=== PATIENT | female | born 1945 | race Caucasian/White ===

== ENCOUNTER 2017-01-27 12:16 | Emergency (ER) | payer MEDICARE, MEDICAID ==
[~2017-01-27] VITALS: Ht 162.6 cm; Wt 68.5 kg
[~2017-01-27 12:16] MED LIST: ASPI81TA82 PO; FOLI1TAB PO; LIDO5DIS35 TD; METH2.5 PO; METO50TA PO; PARO20TA PO
[2017-01-27 12:25] VITALS: BP 141/87; PULSE 67; RESP 18; TEMP 98.2; O2SAT 98
[2017-01-27] MEDS ORDERED: UNKNOWN MEDS (12:37)
[2017-01-27] MEDS ORDERED: OXYC1CAP PO (12:37)
[2017-01-27] MEDS ORDERED: ASPI81CH CHEW (12:37)
--- NOTE | 2017-01-27 12:41 | PD ---
HPI Chief Complaint: Oral / Dental Pain or Problem Time Seen by Provider: 12:41 Travel History International Travel<30 days: No Contact w/Intl Traveler<30days: No Traveled to known affect area: No History of Present Illness HPI 71 year old female with PMH of fibromyalgia and rheumatoid arthritis presents to the ED for evaluation of "2 or 3" week history of painful area at the roof of her mouth. She complains of burning pain that radiates into the lips. She also states she feels as if her lips are swollen. She also endorses malaise, headache and occasional dizziness. She endorses chills, has not measured a fever at home. She has never smoked. She denies ear pain, rhinorrhea, sore throat, cough. He is been treating at home with one 200 mg Motrin daily and occasional peroxide swishes. She states she has an appointment with her primary care provider on the . PFSH Past Medical History Arthritis: Yes (RHEUMATOID) Autoimmune Disease: Yes (RA) Blood Disorders: No Anxiety: No Depression: Yes Heart Rhythm Problems: No Cancer: No Cardiac Catheterization: No Cardiovascular Problems: No High Cholesterol: No Chemotherapy: No Chest Pain: No Congestive Heart Failure: No Cirrhosis: No Cerebrovascular Accident: No Diabetes: No Diminished Hearing: No Endocrine: No Fibromyalgia: Yes GERD: Yes Genitourinary: No Hypertension: No Immune Disorder: No Implanted Vascular Access Dvce: Yes Musculoskeletal: Yes ("ruptured disc,back" "2 vertebrae tips broken off in neck") Neurologic: Yes (FIBROMYALGIA) Psychiatric: Yes Reproductive: No Respiratory: No Immunizations Current: Yes Migraines: No Myocardial Infarction: No Radiation Therapy: No Renal Failure: No Seizures: Yes Thyroid Disease: No ?: Not Menopausal: Yes Dilation and Curettage (D&C): Yes Tubal Ligation: Yes Past Surgical History Abdominal Surgery: No AICD: No Arteriovenous Shunt: No Body Medical Devices: BULDING DISC, PT ALSO STATES WIRES IN RIGHT JAW Cardiac Surgery: No Coronary Artery Bypass Graft: No Ear Surgery: No Endocrine Surgery: No Eye Surgery: Yes (BILATERAL CATARACT) Genitourinary Surgery: No Gynecologic Surgery: Yes (HYSTERECTOMY) Hysterectomy: Yes (IN EARLY 30'S) Insulin Pump: No Joint Replacement: No Oral Surgery: No Pacemaker: No Thoracic Surgery: No Tonsillectomy: Yes Other Surgery: Yes (TUMOR REMOVED FROM RIGHT UNDER ARM) Social History Alcohol Use: No Tobacco Use: No Substance Use: No Allergies-Medications (Allergen,Severity, Reaction): Coded Allergies: *MDRO Multi-Drug Resistant Organism (Verified Allergy, Unknown, 01/27/17) MRSA Codeine (Verified Adverse Reaction, Severe, ITCH, 01/27/17) Ultram (Verified Adverse Reaction, Severe, NAUSEA, 01/27/17) Reported Meds & Prescriptions Reported Meds & Active Scripts Active Magic Mouthwash Adult Liq (Multi-Ingredient Mouthwash/Gargle) 120 Ml Susp 5 Ml SWISH-SWAL Q3HR PRN Each 5mL contains: Nystatin 200,000units, Diphenhydramine 4.25mg, Viscous Lidocaine 10mg, An syrup 0.8 mL Reported [Unknown Meds] Aspirin 81 Mg Chew 81 Mg CHEW DAILY Oxycodone (Oxycodone HCl) 5 Mg Cap Unknown Dose PO Q4H PRN Review of Systems Except as stated in HPI: all other systems reviewed are Neg Physical Exam Narrative GENERAL: Well-nourished, well-developed elderly white female in no acute distress. SKIN: Warm and dry. HEAD: Normocephalic. Atraumatic. EYES: No scleral icterus. No injection or drainage. PERRLA. EOMI. ENT: Pearly barker tympanic membranes bilaterally. Nasal mucosa is moist. Oropharynx without erythema, edema or exudate. There is a 1.5 cm tender, rubbery nodule protruding from the hard palate. No erythema or discharge. NECK: Supple, trachea midline. No JVD. Positive bilateral anterior cervical lymphadenopathy. CARDIOVASCULAR: Regular rate and rhythm without murmurs, gallops, or rubs. No carotid bruits. 2+ DP and radial pulses bilaterally. RESPIRATORY: Breath sounds clear and equal bilaterally. No accessory muscle use. GASTROINTESTINAL: Abdomen soft, non-tender, nondistended. + Bowel sounds MUSCULOSKELETAL: No cyanosis, or edema. The patient is ambulatory and moves extremities spontaneously. BACK: Nontender without obvious deformity. No CVA tenderness. Data Data Last Documented VS Vital Signs Date Time Temp Pulse Resp B/P Pulse Ox O2 Delivery O2 Flow Rate FiO2 01/27/17 15:03 75 16 135/86 99 01/27/17 12:[address] Facial Bones W Iv Contrast (3/17/17 ) Basic Metabolic Panel (Bmp) (01/27/17 12:51) ^ Insert Iv (01/27/17 12:54) Complete Blood Count With Diff (01/27/17 12:55) Iohexol 350 Inj (Omnipaque 350 Inj) (01/27/17 13:50) Labs Laboratory Tests Test 01/27/17 13:00 White Blood Count 6.2 TH/MM3 Red Blood Count 4.21 MIL/MM3 Hemoglobin 12.7 GM/DL Hematocrit 38.9 % Mean Corpuscular Volume 92.3 FL Mean Corpuscular Hemoglobin 30.1 PG Mean Corpuscular Hemoglobin 32.6 % Concent Red Cell Distribution Width 14.3 % Platelet Count 203 TH/MM3 Mean Platelet Volume 7.7 FL Neutrophils (%) (Auto) 53.9 % Lymphocytes (%) (Auto) 37.7 % Monocytes (%) (Auto) 6.2 % Eosinophils (%) (Auto) 1.5 % Basophils (%) (Auto) 0.7 % Neutrophils # (Auto) 3.3 TH/MM3 Lymphocytes # (Auto) 2.4 TH/MM3 Monocytes # (Auto) 0.4 TH/MM3 Eosinophils # (Auto) 0.1 TH/MM3 Basophils # (Auto) 0.0 TH/MM3 CBC Comment AUTO DIFF Differential Comment AUTO DIFF CONFIRMED Sodium Level 144 MEQ/L Potassium Level 4.2 MEQ/L Chloride Level 107 MEQ/L Carbon Dioxide Level 30.5 MEQ/L Anion Gap 7 MEQ/L Blood Urea Nitrogen 13 MG/DL Creatinine 0.83 MG/DL Estimat Glomerular Filtration 67 ML/MIN Rate Random Glucose 85 MG/DL Calcium Level 9.0 MG/DL [facility] Medical Decision Making Medical Screen Exam Complete: Yes Emergency Medical Condition: Yes Differential Diagnosis oral cancer versus abscess versus deep neck space infection versus other Narrative Course 71 year old female with PMH of fibromyalgia and rheumatoid arthritis presents to the ED for evaluation of "2 or 3" week history of painful area at the roof of her mouth. She complains of burning pain that radiates into the lips, malaise, headache, chills and occasional dizziness. She has never smoked. She denies ear pain, rhinorrhea, sore throat, cough. She has an appointment with her primary care provider on the . Vitrals reviewed. Physical exam reveals a nontoxic-appearing elderly female in no acute distress. Completely edentulous. There is a 1 cm rubbery, tender nodule of the hard palate and bilateral anterior cervical lymphadenopathy. Physical exam is otherwise unremarkable. Basic labs are unremarkable. CT of the face with contrast reveals very minimal tonsillar asymmetry but is otherwise unremarkable. The radiologist does note limitations of the study. The patient was prescribed Magic mouthwash when necessary pain, instructed to follow-up with the on-call ENT provider Dr. Prince. I did discuss my concern for cancer and stressed the importance of follow-up. She indicated understanding of instructions and is amenable to plan of care. Patient is stable and discharged home. Diagnosis Primary Impression: Palatal mass Referrals: Fletcher Prince MD Patient Instructions: General Instructions Additional Instructions: Rest, hydrate. Nausea mouthwash 4-5 times a day as needed for pain. Follow-up with the wildlife biostation research ecologist as discussed. Return to the ED for any urgent or emergent medical condition. Med/Other Pt SpecificInfo: Prescription(s) given Scripts Odqmuazm-Zsgqlzuejxdmugv-Ptqdxfbwr Liq (Magic Mouthwash Adult Liq)120 Ml Susp5 Ml SWISH-SWAL Q3HR PRN (Mouth sores) #120 ML Ref 0 Each 5mL contains: Nystatin 200,000units, Diphenhydramine 4.25mg, Viscous Lidocaine 10mg, An syrup 0.8 mL Prov:Kalyan Haque MD 01/27/17 Disposition: 01 DISCHARGE HOME Condition: Stable Alem Pascual Jan 27, 2017 12:41
[2017-01-27 13:09] LABS: AUTOMATED NEUTROPHIL # 3.3 TH/MM3 (1.8-7.7); BASOPHIL % 0.7 % (0.0-2.0); EOSINOPHIL # 0.1 TH/MM3 (0-0.4); EOSINOPHIL % 1.5 % (0.0-4.0); HEMATOCRIT 38.9 % (35.0-46.0); LYMPH % 37.7 % (9.0-44.0); LYMPHOCYTE # 2.4 TH/MM3 (1.0-4.8); MEAN CELL VOLUME 92.3 FL (80.0-100.0); MEAN CORPUSCULAR HEMOGLOBIN 30.1 PG (27.0-34.0); MEAN CORPUSCULAR HGB CONC 32.6 % (32.0-36.0); MONO % 6.2 % (0.0-8.0); NEUT % 53.9 % (16.0-70.0); PLATELET COUNT 203 TH/MM3 (150-450); RED BLOOD COUNT 4.21 MIL/MM3 (4.00-5.30); RED CELL DISTRIBUTION WIDTH 14.3 % (11.6-17.2); WHITE BLOOD COUNT 6.2 TH/MM3 (4.0-11.0)
[2017-01-27 13:23] LABS: POTASSIUM 4.2 MEQ/L (3.5-5.1)
[2017-01-27 13:24] LABS: HEMO FLAGS AUTO DIFF
[2017-01-27 13:26] LABS: BICARBONATE 30.5 MEQ/L (21.0-32.0)
[2017-01-27] MEDS ORDERED: IOHEXOL 350 MG/ML 10 ML VIAL (for RAD DIAG) IV ONE (13:50)
[2017-01-27 13:52] LABS: SCAN/DIFF AUTO DIFF CONFIRMED
--- NOTE | 2017-01-27 14:42 | RADHPO ---
EXAM DATE/TIME: 01/27/2017 13:39 [facility] COMPARISON: No previous studies available for comparison. INDICATIONS : Roof of mouth pain. Evaluate for tumor. Cephalgia. Malaise. Dizziness. IV CONTRAST: 65 cc Omnipaque 350 (iohexol) IV RADIATION DOSE: 29.78 CTDIvol (mGy) MEDICAL HISTORY : Seizures. Gastroesophageal reflux disease. Palatal nodule. SURGICAL HISTORY : Tubal ligation. Hysterectomy. ENCOUNTER: Initial ACUITY: 2 weeks PAIN SCALE: 5/10 LOCATION: Facial TECHNIQUE: Volumetric scanning of the facial bones was performed. Using automated exposure contr ol and adjustment of the mA and/or kV according to patient size, radiation dose was kept as low as re asonably achievable to obtain optimal diagnostic quality images. FINDINGS: There is good visualization of the skull base and floor of the mouth in the axial and c oronal projections. There is no adenopathy. There is no soft tissue mass. On the coronal reconstructions there is no abnormal soft tissue evident. There is minimal mucoperiosteal thickening in the sphenoid sinus. Maxillary sinuses are clear. The patient is edentulate in the maxilla area. CONCLUSION: 1. I do not see an etiology for the patient's pain. 2. Palate lesions are notoriously difficult to image. Direct visualization is suggested. MRI can also be used for further evaluation. There is very minimal asymmetry on the left tonsil when compared to the right which is very nonspecific. Kannan Lopes MD FACR on January 27, 2017 at 14:06 Board Certified Radiologist. This report was verified electronically.
[2017-01-27] MEDS ORDERED: MAGICADU2 SWISH-SWAL (14:49)
[2017-01-27 15:03] VITALS: BP 135/86
== END 2017-01-27 15:03 | disposition home or self-care (01) ==
LOC: PHEFT 12:16
DX: R22.0 Localized swelling, mass and lump, head (principal); R59.0 Localized enlarged lymph nodes
CPT/HCPCS: 70487; 80048; 85025; 99283; Q9967

== ENCOUNTER 2017-02-23 20:46 | Emergency (ER) | payer MEDICARE, MEDICAID ==
[~2017-02-23] VITALS: Ht 162.6 cm; Wt 66.5 kg
[~2017-02-23 20:46] MED LIST changes: +ASPI81CH CHEW; -ASPI81TA82 PO; -FOLI1TAB PO; -LIDO5DIS35 TD; +MAGICADU2 SWISH-SWAL; -METH2.5 PO; -METO50TA PO; +OXYC1CAP PO; -PARO20TA PO; +UNKNOWN MEDS
[2017-02-23 20:52] VITALS: BP 136/78; PULSE 90; RESP 16; TEMP 98.5; O2SAT 97
[2017-02-23 21:05] VITALS: BP 136/83; PULSE 83; RESP 18; O2SAT 97
[2017-02-23] MEDS ORDERED: SODIUM CHLORID 0.9% 500 ML INJ 500 ML IV ONE (21:45)
[2017-02-23 22:04] LABS: AUTOMATED NEUTROPHIL # 3.5 TH/MM3 (1.8-7.7); BASOPHIL # 0.1 TH/MM3 (0-0.2); BASOPHIL % 0.8 % (0.0-2.0); EOSINOPHIL # 0.1 TH/MM3 (0-0.4); EOSINOPHIL % 2.1 % (0.0-4.0); HEMO FLAGS DIFF FINAL; LYMPH % 37.2 % (9.0-44.0); LYMPHOCYTE # 2.4 TH/MM3 (1.0-4.8); MEAN CELL VOLUME 90.7 FL (80.0-100.0); MEAN CORPUSCULAR HEMOGLOBIN 29.6 PG (27.0-34.0); MEAN CORPUSCULAR HGB CONC 32.6 % (32.0-36.0); MONO % 6.6 % (0.0-8.0); NEUT % 53.3 % (16.0-70.0); PLATELET COUNT 204 TH/MM3 (150-450); RED BLOOD COUNT 3.97 MIL/MM3 (4.00-5.30); RED CELL DISTRIBUTION WIDTH 13.2 % (11.6-17.2); WHITE BLOOD COUNT 6.5 TH/MM3 (4.0-11.0)
[2017-02-23 22:08] LABS: CHLORIDE 109 MEQ/L (98-107); POTASSIUM 3.5 MEQ/L (3.5-5.1); SODIUM (NA) 146 MEQ/L (136-145)
[2017-02-23 22:12] LABS: ANION GAP 9 MEQ/L (5-15); BICARBONATE 28.4 MEQ/L (21.0-32.0); BLOOD UREA NITROGEN 14 MG/DL (7-18)
[2017-02-23 22:15] LABS: ALT (GPT) 12 U/L (10-53); AST (GOT) 34 U/L (15-37); GLOMERULAR FILTRATION RATE 57 ML/MIN (>89)
--- NOTE | 2017-02-23 22:15 | RADHPO ---
EXAM DATE/TIME: 02/23/2017 21:56 [facility] COMPARISON: CHEST PA & LAT, November 07, 2014, 17:00. INDICATIONS : Chest discomfort; fall 2 days ago. MEDICAL HISTORY : Rheumatoid arthritis. Seizures. Fibromyalgia. Osteoporosis. SURGICAL HISTORY : ENCOUNTER: Initial ACUITY: 2 days PAIN SCORE: 1/10 LOCATION: Bilateral chest FINDINGS: PA and lateral views of the chest demonstrate the lungs to be symmetrically aerated without evidence of mass, infiltrate or effusion. The cardiomediastinal contours are unremarkable. Osseous structure s are intact. CONCLUSION: No acute disease. Fletcher Dutta MD on February 23, 2017 at 22:11 Board Certified Radiologist. This report was verified electronically.
--- NOTE | 2017-02-23 22:15 | RADHPO ---
EXAM DATE/TIME: 02/23/2017 22:00 [facility] COMPARISON: No previous studies available for comparison. INDICATIONS : Right shoulder pain; fall 2 days ago. MEDICAL HISTORY : Rheumatoid arthritis. Osteoporosis. Fibromyalgia. SURGICAL HISTORY : None. ENCOUNTER: Initial ACUITY: 2 days PAIN SCORE: 6/10 LOCATION: Right shoulder. FINDINGS: Multiple view examination of the right shoulder demonstrates no evidence of fracture or dislocation. The glenohumeral and acromioclavicular joints are maintained. There is normal range of motion betwe en internal and external rotation. Bony mineralization is normal. CONCLUSION: Negative trauma study. Fletcher Dutta MD on February 23, 2017 at 22:13 Board Certified Radiologist. This report was verified electronically.
[2017-02-23 22:16] LABS: TOTAL BILIRUBIN ADULT 0.4 MG/DL (0.2-1.0)
[2017-02-23 22:16] LABS: BLOOD, URINE NEG (NEG); GLUCOSE,URINE NEG (NEG); KETONE, URINE TRACE mg/dL (NEG); NITRITE,URINE NEG (NEG); PH, URINE 5.5 (5.0-8.5)
[2017-02-23 22:18] LABS: ALKALINE PHOSPHATASE 87 U/L (45-117)
[2017-02-23 22:23] LABS: URINE COLOR YELLOW (YELLW/STRAW)
[2017-02-23 22:25] LABS: COMMENT (UR) CULT NOT INDICATED; CULTURE IF INDICATED CULT NOT INDICATED; MUCUS URINE MANY /lpf (OCC); SQUAMOUS EPITHELIAL CELL URINE 0-5 /hpf (0-5); WBC, URINE 0-2 /hpf (0-5)
[2017-02-23] MEDS ORDERED: PERC5TAB12 PO (22:29)
[2017-02-23] MEDS ORDERED: METH2.5T PO (22:29)
--- NOTE | 2017-02-23 22:56 | PD ---
HPI Chief Complaint: General Weakness Time Seen by Provider: 21:40 Travel History International Travel<30 days: No Contact w/Intl Traveler<30days: No Traveled to known affect area: No History of Present Illness HPI Patient is a 71-year-old female who comes in complaining of vaginal pain and itching. She says her daughter gave her some Monistat which only made the symptoms worse, she had severe burning after using it. She says she has burning with urination. She denies any abdominal pain. She also reports that a day or 2 ago she fell when she tripped over some bricks around her house. She says she landed on her right side including the right side of her head and her right shoulder. She is complaining of pain to her head, her shoulder and her entire right side. She denies any loss of consciousness. She denies dizziness, nausea or vomiting. She denies fever or chills. PFSH Past Medical History Arthritis: Yes (RHEUMATOID) Autoimmune Disease: Yes (RA) Blood Disorders: No Anxiety: No Depression: Yes Heart Rhythm Problems: No Cancer: No Cardiac Catheterization: No Cardiovascular Problems: No High Cholesterol: No Chemotherapy: No Chest Pain: No Congestive Heart Failure: No Cirrhosis: No Cerebrovascular Accident: No Diabetes: No Diminished Hearing: No Endocrine: No Fibromyalgia: Yes GERD: Yes Genitourinary: No Hypertension: No Immune Disorder: No Implanted Vascular Access Dvce: Yes Medical other: Yes (Left shoulder rotator cuff tear) Musculoskeletal: Yes ("ruptured disc,back" "2 vertebrae tips broken off in neck") Neurologic: Yes (FIBROMYALGIA) Psychiatric: Yes Reproductive: No Respiratory: No Immunizations Current: Yes Migraines: No Myocardial Infarction: No Radiation Therapy: No Renal Failure: No Seizures: Yes Thyroid Disease: No Tetanus Vaccination: Never Vaccinated ?: Not Menopausal: Yes Dilation and Curettage (D&C): Yes Tubal Ligation: Yes Past Surgical History Abdominal Surgery: No AICD: No Arteriovenous Shunt: No Body Medical Devices: BULDING DISC, PT ALSO STATES WIRES IN RIGHT JAW Cardiac Surgery: No Coronary Artery Bypass Graft: No Ear Surgery: No Endocrine Surgery: No Eye Surgery: Yes (BILATERAL CATARACT) Genitourinary Surgery: No Gynecologic Surgery: Yes (HYSTERECTOMY) Hysterectomy: Yes (IN EARLY 'S) Insulin Pump: No Joint Replacement: No Oral Surgery: No Pacemaker: No Thoracic Surgery: No Tonsillectomy: Yes Other Surgery: Yes (TUMOR REMOVED FROM RIGHT UNDER ARM) Social History Alcohol Use: No Tobacco Use: No Substance Use: No Allergies-Medications (Allergen,Severity, Reaction): Coded Allergies: *MDRO Multi-Drug Resistant Organism (Verified Allergy, Unknown, 02/23/17) MRSA Codeine (Verified Adverse Reaction, Severe, ITCH, 02/23/17) Ultram (Verified Adverse Reaction, Severe, NAUSEA, 02/23/17) Reported Meds & Prescriptions Reported Meds & Active Scripts Active Reported Percocet (Oxycodone-Acetaminophen) 5-325 mg Tab 1 Tab PO Q6H PRN Methotrexate 2.5 Mg Tab 2.5 Mg PO Q7D [Unknown Meds] Aspirin 81 Mg Chew 81 Mg CHEW DAILY Review of Systems Except as stated in HPI: all other systems reviewed are Neg General / Constitutional: No: Fever, Chills Eyes: No: Blurred Vision HENT: No: Headaches, Lightheadedness Cardiovascular: No: Chest Pain or Discomfort Respiratory: No: Shortness of Breath Gastrointestinal: No: Nausea, Vomiting Genitourinary: Positive: Dysuria Skin: No Rash Neurologic: No: Weakness, Dizziness Physical Exam Narrative GENERAL: Awake and alert, in no acute distress. SKIN: Focused skin assessment warm/dry. HEAD: Atraumatic. Normocephalic. EYES: Pupils equal and round. No scleral icterus. Extraocular movements intact. ENT: Mucous membranes pink and moist. NECK: Trachea midline. No JVD. No cervical spine tenderness. Tender to palpation of the right trapezius muscle. CARDIOVASCULAR: Regular rate and rhythm. No murmur appreciated. No chest wall tenderness. RESPIRATORY: No accessory muscle use. Clear to auscultation. Breath sounds equal bilaterally. GASTROINTESTINAL: Abdomen soft, nondistended. Tender to palpation along the right side of the abdomen. : abnormal lesion at the 6 oclock area of the introitus. White discharge. MUSCULOSKELETAL: No obvious deformities. No clubbing. No cyanosis. No edema. Tender to palpation of the right shoulder. NEUROLOGICAL: Awake and alert. No obvious cranial nerve deficits. Motor grossly within normal limits. Normal speech. PSYCHIATRIC: Appropriate mood and affect; insight and judgment normal. Data Data Last Documented VS Vital Signs Date Time Temp Pulse Resp B/P Pulse Ox O2 Delivery O2 Flow Rate FiO2 02/23/17 22:05 20 4/13/17 21:05 83 136/83 97 Room Air 02/23/17 20:52 98.5 Orders Complete Blood Count With Diff (02/23/17 21:40) Comprehensive Metabolic Panel (02/23/17 21:40) Urinalysis - C+S If Indicated (02/23/17 21:40) Cath For Specimen (02/23/17 21:40) Ct Brain W/O Iv Contrast(Rout) (02/23/17 ) Chest, Pa & Lat (02/23/17 ) Shoulder, Complete (>2vws) (02/23/17 ) Troponin I (02/23/17 21:40) Electrocardiogram (02/23/17 ) Ct Abd/Pel W Iv Contrast(Rout) (02/23/17 ) Sodium Chlorid 0.9% 500 Ml Inj (Ns 500 M (02/23/17 21:45) Iohexol 350 Inj (Omnipaque 350 Inj) (02/23/17 23:01) Acetaminophen (Tylenol) (02/23/17 23:15) Labs Laboratory Tests Test 02/23/17 02/23/17 21:40 21:50 Urine Color YELLOW Urine Turbidity CLEAR Urine pH 5.5 Urine Specific Farber 1.034 Urine Protein TRACE mg/dL Urine Glucose (UA) NEG mg/dL Urine Ketones TRACE mg/dL Urine Occult Blood NEG Urine Nitrite NEG Urine Bilirubin NEG Urine Leukocyte Esterase NEG Urine WBC 0-2 /hpf Urine Squamous Epithelial 0-5 /hpf Cells Urine Mucus MANY /lpf Microscopic Urinalysis Comment CULT NOT INDICATED White Blood Count 6.5 TH/MM3 Red Blood Count 3.97 MIL/MM3 Hemoglobin 11.7 GM/DL Hematocrit 36.0 % Mean Corpuscular Volume 90.7 FL Mean Corpuscular Hemoglobin 29.6 PG Mean Corpuscular Hemoglobin 32.6 % Concent Red Cell Distribution Width 13.2 % Platelet Count 204 TH/MM3 Mean Platelet Volume 8.0 FL Neutrophils (%) (Auto) 53.3 % Lymphocytes (%) (Auto) 37.2 % Monocytes (%) (Auto) 6.6 % Eosinophils (%) (Auto) 2.1 % Basophils (%) (Auto) 0.8 % Neutrophils # (Auto) 3.5 TH/MM3 Lymphocytes # (Auto) 2.4 TH/MM3 Monocytes # (Auto) 0.4 TH/MM3 Eosinophils # (Auto) 0.1 TH/MM3 Basophils # (Auto) 0.1 TH/MM3 CBC Comment DIFF FINAL Differential Comment Sodium Level 146 MEQ/L Potassium Level 3.5 MEQ/L Chloride Level 109 MEQ/L Carbon Dioxide Level 28.4 MEQ/L Anion Gap 9 MEQ/L Blood Urea Nitrogen 14 MG/DL Creatinine 0.96 MG/DL Estimat Glomerular Filtration 57 ML/MIN Rate Random Glucose 109 MG/DL Calcium Level 8.6 MG/DL Total Bilirubin 0.4 MG/DL Aspartate Amino Transf 34 U/L (AST/SGOT) Alanine Aminotransferase 12 U/L (ALT/SGPT) Alkaline Phosphatase 87 U/L Troponin I LESS THAN 0.02 NG/ML Total Protein 6.8 GM/DL Albumin 3.4 GM/DL [facility] Medical Decision Making Medical Screen Exam Complete: Yes Emergency Medical Condition: Yes Medical Record Reviewed: Yes Interpretation(s) ECG shows normal sinus rhythm at 65, no ST elevation or depression, normal intervals. Differential Diagnosis UTI versus yeast infection versus humeral fracture versus ICH versus abdominal injury Narrative Course Patient is a 71-year-old female comes in complaining of vaginal pain and burning. Exam shows some abnormal vaginal cells and white discharge. IV established, labs sent. Labs show no acute abnormalities. Urinalysis is negative for UTI. X-ray of the chest and shoulder show no acute abnormalities. CT head and abdomen and pelvis show no acute abnormalities. informed she needs to see a interior design assistant to have the abnormal cells looked at. She understands this and will make an appointment. Patient says she is comfortable going home, she says she feels safe at home. Advised that she should walk with her walker or cane to avoid falling in the future. Advised to return to the ED as needed for any worsening symptoms. Advised follow-up with a primary care doctor. Given a prescription for Diflucan to help with possible symptoms of yeast. Diagnosis Primary Impression: Vaginal burning Patient Instructions: General Instructions, Vaginitis (ED) Additional Instructions: Your vaginal exam was abnormal, you need to follow up with a interior design assistant. You should follow up with your primary doctor. Return to the ED as needed for any worsening symptoms. Scripts Fluconazole (Diflucan)150 Mg [id number] Mg PO ONCE #1 TAB Ref 0 Prov:Liv Montanez MD 02/23/17 Disposition: 01 DISCHARGE HOME Condition: Stable Liv Montanez MD Feb 23, 2017 22:56
[2017-02-23] MEDS ORDERED: IOHEXOL 350 MG/ML 10 ML VIAL (for RAD DIAG) IV ONE (23:01)
--- NOTE | 2017-02-23 23:08 | RADHPO ---
EXAM DATE/TIME: 02/23/2017 22:35 [facility] COMPARISON: CT BRAIN W/O CONTRAST, October 18, 2015, 20:12. INDICATIONS : Trauma. Fall. RADIATION DOSE: 62.82 CTDIvol (mGy) MEDICAL HISTORY : Seizures. SURGICAL HISTORY : Hysterectomy. ENCOUNTER: Initial ACUITY: 2 days PAIN SCALE: 0/10 LOCATION: Right frontal TECHNIQUE: Multiple contiguous axial images were obtained of the head. Using automated exposure control and adj ustment of the mA and/or kV according to patient size, radiation dose was kept as low as reasonably a chievable to obtain optimal diagnostic quality images. FINDINGS: CEREBRUM: The ventricles are normal for age. No evidence of midline shift, mass lesion, hemorrhage or acute in farction. No extra-axial fluid collections are seen. POSTERIOR FOSSA: The cerebellum and brainstem are intact. The 4th ventricle is midline. The cerebellopontine angle i s unremarkable. EXTRACRANIAL: The visualized portion of the orbits is intact. SKULL: The calvaria is intact. No evidence of skull fracture. CONCLUSION: Normal examination for a patient of this age. No significant change Golden Bailon MD on February 23, 2017 at 23:06 Board Certified Radiologist. This report was verified electronically.
--- NOTE | 2017-02-23 23:10 | RADHPO ---
EXAM DATE/TIME: 02/23/2017 22:39 [facility] COMPARISON: No previous studies available for comparison. INDICATIONS : Pelvic discomfort. IV CONTRAST: 100 cc Omnipaque 350 (iohexol) IV ORAL CONTRAST: No oral contrast ingested. RADIATION DOSE: 8.79 CTDIvol (mGy) MEDICAL HISTORY : Gastroesophageal reflux disease. Seizures. SURGICAL HISTORY : Hysterectomy. ENCOUNTER: Initial ACUITY: 2 days PAIN SCALE: 0/10 LOCATION: Bilateral lower quadrant TECHNIQUE: Volumetric scanning of the abdomen and pelvis was performed. Using automated exposure control and ad justment of the mA and/or kV according to patient size, radiation dose was kept as low as reasonably achievable to obtain optimal diagnostic quality images. FINDINGS: LOWER LUNGS: The visualized lower lungs are clear. LIVER: Homogeneous density without lesion. There is no dilation of the biliary tree. No calcified gallston es. SPLEEN: Normal size without lesion. PANCREAS: Within normal limits. KIDNEYS: Normal in size and shape. There is no mass, stone or hydronephrosis. ADRENAL GLANDS: Within normal limits. VASCULAR: There is no aortic aneurysm. BOWEL/MESENTERY: The stomach, small bowel, and colon demonstrate no acute abnormality. There is no free intraperitone al air or fluid. No inflammatory changes. There is stool throughout colon. ABDOMINAL WALL: Within normal limits. RETROPERITONEUM: There is no lymphadenopathy. BLADDER: No wall thickening or mass. REPRODUCTIVE: Within normal limits. INGUINAL: There is no lymphadenopathy or hernia. MUSCULOSKELETAL: Within normal limits for patient age. Primary bony degenerative changes. CONCLUSION: Unremarkable CT abdomen and pelvis for patient's age. Golden Bailon MD on February 23, 2017 at 23:07 Board Certified Radiologist. This report was verified electronically.
[2017-02-23] MEDS ORDERED: ACETAMINOPHEN 325 MG TAB PO ONE (23:15)
[2017-02-23] MEDS ORDERED: DIFL150T PO (23:30)
[2017-02-23 23:40] VITALS: BP 125/60; TEMP 97.9
[2017-02-23 23:55] VITALS: RESP 16
--- NOTE | 2017-02-24 10:29 | EKG ---
Date Performed: 02/23/2017 Time Performed: 22:19:20 PTAGE: 71 years EKG: Sinus rhythm Normal ECG PREVIOUS TRACING : 12/18/2015 06.06 DOCTOR: Cesar Rudd Interpretating Date/Time 02/24/2017 10:28:25
== END 2017-02-23 23:50 | disposition home or self-care (01) ==
LOC: PHED 20:46
DX: M06.9 Rheumatoid arthritis, unspecified (principal); M79.7 Fibromyalgia; N76.0 Acute vaginitis
CPT/HCPCS: 70450; 71020; 73030; 74177; 80053; 81001; 84484; 85025; 93005; 96360; 99284; J7040; P9612; Q9967

== ENCOUNTER 2017-08-22 16:15 | Emergency (ER) | payer MEDICARE, MEDICAID ==
[~2017-08-22] VITALS: Ht 162.6 cm; Wt 50.0 kg
[~2017-08-22 16:15] MED LIST changes: +DIFL150T PO; -MAGICADU2 SWISH-SWAL; +METH2.5T PO; -OXYC1CAP PO; +PERC5TAB12 PO
[2017-08-22 16:30] VITALS: BP 94/60; PULSE 65; RESP 18; TEMP 98.5; O2SAT 98
[2017-08-22] MEDS ORDERED: SODIUM CHLOR 0.9% 1000 ML INJ 1,000 ML IV ONE (16:30)
--- NOTE | 2017-08-22 16:31 | PD ---
HPI Chief Complaint: generalized weakness/AMS Time Seen by Provider: 16:23 Travel History International Travel<30 days: No Contact w/Intl Traveler<30days: No Traveled to known affect area: No History of Present Illness HPI Patient is a 72 year old female with history of Parkinson's disease, presents to the ER for evaluation of generalized weakness with change in mental status. As per EMS, patients family called as patient was not acting like herself today , reports that she appeared confused and disoriented and lethargic. Patient reports that she has not been feeling well for the past 2 days, reports that she has had increased congestion with nonproductive cough. Reports that she has increased burning with urination. Patient denies headache/dizzyness. Reports that she feels overall weak. Reports that she was unable to sleep last night has she has sick family members that she is worried about. Patient is alert and oriented x 3 in the ER. PFSH Past Medical History Arthritis: Yes (RHEUMATOID) Autoimmune Disease: Yes (RA) Blood Disorders: No Anxiety: No Depression: Yes Heart Rhythm Problems: No Cancer: No Cardiac Catheterization: No Cardiovascular Problems: No High Cholesterol: No Chemotherapy: No Chest Pain: No Congestive Heart Failure: No Cirrhosis: No Cerebrovascular Accident: No Diabetes: No Diminished Hearing: No Endocrine: No Fibromyalgia: Yes GERD: Yes Genitourinary: No Hypertension: No Immune Disorder: No Implanted Vascular Access Dvce: Yes Musculoskeletal: Yes ("ruptured disc,back" "2 vertebrae tips broken off in neck") Neurologic: Yes (FIBROMYALGIA) Psychiatric: Yes Reproductive: No Respiratory: No Immunizations Current: Yes Migraines: No Myocardial Infarction: No Radiation Therapy: No Renal Failure: No Seizures: Yes Thyroid Disease: No Menopausal: Yes Dilation and Curettage (D&C): Yes Tubal Ligation: Yes Past Surgical History Abdominal Surgery: No AICD: No Arteriovenous Shunt: No Body Medical Devices: BULDING DISC, PT ALSO STATES WIRES IN RIGHT JAW Cardiac Surgery: No Coronary Artery Bypass Graft: No Ear Surgery: No Endocrine Surgery: No Eye Surgery: Yes (BILATERAL CATARACT) Genitourinary Surgery: No Gynecologic Surgery: Yes (HYSTERECTOMY) Hysterectomy: Yes (IN EARLY 30'S) Insulin Pump: No Joint Replacement: No Oral Surgery: No Pacemaker: No Thoracic Surgery: No Tonsillectomy: Yes Other Surgery: Yes (TUMOR REMOVED FROM RIGHT UNDER ARM) Social History Alcohol Use: No Tobacco Use: No Substance Use: No Allergies-Medications (Allergen,Severity, Reaction): Coded Allergies: *MDRO Multi-Drug Resistant Organism (Verified Allergy, Unknown, 02/23/17) MRSA codeine (Unverified Adverse Reaction, Severe, ITCH, 06/27/17) tramadol (Unverified Adverse Reaction, Severe, NAUSEA, 06/27/17) Reported Meds & Prescriptions Reported Meds & Active Scripts Active Reported Carbidopa-Levodopa 10-100 Mg Tab 1 Tab PO Q8HR Paroxetine (Paroxetine HCl) 20 Mg Tab 20 Mg PO BID Review of Systems General / Constitutional: No: Fever, Chills Eyes: No: Visual changes HENT: Positive: Congestion, No: Headaches Cardiovascular: No: Chest Pain or Discomfort, Palpitations Respiratory: Positive: Cough, No: Shortness of Breath Gastrointestinal: No: Abdominal Pain Genitourinary: Positive: Urgency, Frequency, Dysuria Musculoskeletal: No: Pain Skin: No Rash Neurologic: Positive: Weakness Psychiatric: No: Depression Endocrine: No: Polydipsia Hematologic/Lymphatic: No: Easy Bruising Physical Exam Narrative GENERAL: moderate distress, weak and frail appearing, patient is alert and oriented x 3 SKIN: Focused skin assessment warm/dry. HEAD: Atraumatic. Normocephalic. EYES: Pupils equal and round. No scleral icterus. No injection or drainage. ENT: No nasal bleeding or discharge. Mucous membranes pink and moist. NECK: Trachea midline. No JVD. CARDIOVASCULAR: Regular rate and rhythm. No murmur appreciated. RESPIRATORY: No accessory muscle use. Clear to auscultation. Breath sounds equal bilaterally. GASTROINTESTINAL: Abdomen soft, non-tender, nondistended. Hepatic and splenic margins not palpable. MUSCULOSKELETAL: No obvious deformities. No clubbing. No cyanosis. No edema. NEUROLOGICAL: Awake and alert. . Motor grossly within normal limits. Normal speech. PSYCHIATRIC: Flat mood and affect; Data Data Last Documented VS Vital Signs Date Time Temp Pulse Resp B/P (MAP) Pulse Ox O2 Delivery O2 Flow Rate FiO2 08/22/17 18:06 65 18 107/65 (79) 98 Room Air 08/22/17 16:30 98.5 Orders Orders Complete Blood Count With Diff (08/22/17 16:24) Comprehensive Metabolic Panel (08/22/17 16:24) Prothrombin Time / Inr (Pt) (08/22/17) Act Partial Throm Time (Ptt) (08/22/17) Lactic Acid Sepsis Protocol (08/22/17) Magnesium (Mg) (08/22/17) Ckmb (Isoenzyme) Profile (08/22/17) Troponin I (08/22/17) Urinalysis - C+S If Indicated (08/22/17) Chest, Single Ap (08/22/17) Ecg Monitoring (08/22/17) Iv Access Insert/Monitor (08/22/17) Oximetry (08/22/17) Sodium Chlor 0.9% 1000 Ml Inj (Ns 1000 M (08/22/17) ^ Straight Catheter (08/22/17) Ct Brain W/O Iv Contrast(Rout) (08/22/17:) Labs Laboratory Tests Test 08/22/17:30 08/22/17:45 White Blood Count 5.5 TH/MM3 Red Blood Count 4.09 MIL/MM3 Hemoglobin 11.9 GM/DL Hematocrit 36.7 % Mean Corpuscular Volume 89.6 FL Mean Corpuscular Hemoglobin 29.1 PG Mean Corpuscular Hemoglobin Concent 32.5 % Red Cell Distribution Width 13.5 % Platelet Count 178 TH/MM3 Mean Platelet Volume 8.1 FL Neutrophils (%) (Auto) 44.9 % Lymphocytes (%) (Auto) 41.0 % Monocytes (%) (Auto) 6.6 % Eosinophils (%) (Auto) 6.5 % Basophils (%) (Auto) 1.0 % Neutrophils # (Auto) 2.3 TH/MM3 Lymphocytes # (Auto) 2.3 TH/MM3 Monocytes # (Auto) 0.4 TH/MM3 Eosinophils # (Auto) 0.4 TH/MM3 Basophils # (Auto) 0.1 TH/MM3 CBC Comment DIFF FINAL Differential Comment Prothrombin Time 10.4 SEC Prothromb Time International Ratio 0.9 RATIO Activated Partial Thromboplast Time 24.1 SEC Blood Urea Nitrogen 22 MG/DL Creatinine 0.75 MG/DL Random Glucose 83 MG/DL Total Protein 6.9 GM/DL Albumin 3.7 GM/DL Calcium Level 8.5 MG/DL Magnesium Level 2.4 MG/DL Alkaline Phosphatase 76 U/L Aspartate Amino Transf (AST/SGOT) 40 U/L Alanine Aminotransferase (ALT/SGPT) 19 U/L Total Bilirubin 0.7 MG/DL Sodium Level 140 MEQ/L Potassium Level 4.3 MEQ/L Chloride Level 107 MEQ/L Carbon Dioxide Level 28.6 MEQ/L Anion Gap 4 MEQ/L Estimat Glomerular Filtration Rate 76 ML/MIN Lactic Acid Level 0.9 mmol/L Total Creatine Kinase 55 U/L Troponin I LESS THAN 0.02 NG/ML Urine Color YELLOW Urine Turbidity CLEAR Urine pH 5.5 Urine Specific Bryant 1.020 Urine Protein NEG mg/dL Urine Glucose (UA) NEG mg/dL Urine Ketones NEG mg/dL Urine Occult Blood NEG Urine Nitrite NEG Urine Bilirubin NEG Urine Leukocyte Esterase NEG Urine RBC 0-3 /hpf Urine WBC 0-2 /hpf Urine Squamous Epithelial Cells 0-5 /hpf Microscopic Urinalysis Comment CULT NOT INDICATED MDM Medical Decision Making Medical Screen Exam Complete: Yes Emergency Medical Condition: Yes Medical Record Reviewed: Yes Interpretation(s) EKG at 1620: NSR at 62bpm, qt/qtc: 409/414, no acute st or t wave changes Differential Diagnosis Diagnosis includes acs, arrhythmia, electrolyte abnormality, ICH, CVA, TIA, UTI , infection Narrative Course 72-year-old female who presents to emergency room by EMS for evaluation of altered mental status with generalized weakness. Patient is alert and oriented 3 while in the emergency room, she reports that she has been feeling tired as she has not been able to sleep due to home stressors. Reports that she has had a nonproductive cough, congestion, generalized weakness. Patient was hypotensive upon EMS arrival on scene, her systolic blood pressures in the 80s, and received about 500 mL of normal saline her to arrival to the emergency room. Patient was placed on a alarm security or surveillance monitor, lab work including lactic acid ordered. IV fluids ordered for patient as well. Vital Signs Date Time Temp Pulse Resp B/P (MAP) Pulse Ox O2 Delivery O2 Flow Rate FiO2 08/22/17 17:31 96 Room Air 08/22/17 17:06 18 98 Room Air 08/22/17 16:30 98.5 65 18 94/60 (71) 98 CBC & BMP Diagram 08/22/17 16:30 Total Protein 6.9, Albumin 3.7, Calcium Level 8.5, Magnesium Level 2.4, Alkaline Phosphatase 76, Aspartate Amino Transf (AST/SGOT) 40 H, Alanine Aminotransferase (ALT/SGPT) 19, Total Bilirubin 0.7 UA: neg leuk esterase, neg nitrites, 0-2 wbc Last Impressions Head CT 08/22/17 1628 Signed Impressions: Service Date/Time: Tuesday, August 22, 2017 17:24 - CONCLUSION: 1. Stable exam without evidence of acute infarct, hemorrhage, mass or edema. 2. Mildly prominent CSF spaces characteristic of an aging brain. Eugenio Pritchett MD Chest X-Ray 08/22/17 1624 Signed Impressions: Service Date/Time: Tuesday, August 22, 2017 17:05 - CONCLUSION: Normal examination for a patient of this age. Stable exam Golden Bailon MD Patient is alert and oriented 3 in the emergency room, reports that she just feels exhausted and weak. cbc: wnl bmp: bun 22, creatine 0.75, sodium 140, chloride 107, lactic acid 0.9, troponin 0.02 UA with no signs of infection Vital Signs Date Time Temp Pulse Resp B/P (MAP) Pulse Ox O2 Delivery O2 Flow Rate FiO2 08/22/17 18:06 65 18 107/65 (79) 98 Room Air 08/22/17 17:31 96 Room Air 08/22/17 17:06 18 98 Room Air 08/22/17 16:30 98.5 65 18 94/60 (71) 98 Vital signs have been stable while in the emergency room, patient's at bedside. Reports that patient's son who lives with them is a drunk and patient stays up all night worrying about him. Reports that she is exhausted as she is unable to sleep. Reports that her symptoms are most likely due to exhaustion versus infection. Patient is alert and oriented 3 in the emergency room, patient with only complaint of generalized weakness. Her lab work is benign, studies are reassuring. Patient is safe to be discharged to home at this time as she does not suffer any emergencies. Plan to discharge patient to home with her follow-up with her primary care doctor. Patient's will bring patient back to the emergency room should patient's mental status change. Signs and symptoms of when to return to the emergency room was reviewed patient in detail. Diagnosis Primary Impression: Generalized weakness Additional Impression: Exhaustion Patient Instructions: General Instructions Additional Instructions: Please follow up with your primary care doctor Return to ER as needed Return to ER if symptoms return Please drink plenty of fluids Please get some rest! Disposition: 01 DISCHARGE HOME Condition: Stable Trisha Hsu DO Aug 22, 2017 16:31
[2017-08-22 16:42] LABS: AUTOMATED NEUTROPHIL # 2.3 TH/MM3 (1.8-7.7); BASOPHIL # 0.1 TH/MM3 (0-0.2); EOSINOPHIL # 0.4 TH/MM3 (0-0.4); EOSINOPHIL % 6.5 % (0.0-4.0); HEMATOCRIT 36.7 % (35.0-46.0); HEMO FLAGS DIFF FINAL; LYMPHOCYTE # 2.3 TH/MM3 (1.0-4.8); MEAN CELL VOLUME 89.6 FL (80.0-100.0); MEAN CORPUSCULAR HEMOGLOBIN 29.1 PG (27.0-34.0); MEAN CORPUSCULAR HGB CONC 32.5 % (32.0-36.0); MONO % 6.6 % (0.0-8.0); NEUT % 44.9 % (16.0-70.0); PLATELET COUNT 178 TH/MM3 (150-450); RED BLOOD COUNT 4.09 MIL/MM3 (4.00-5.30); RED CELL DISTRIBUTION WIDTH 13.5 % (11.6-17.2); WHITE BLOOD COUNT 5.5 TH/MM3 (4.0-11.0)
[2017-08-22 16:50] LABS: BLOOD, URINE NEG (NEG); GLUCOSE,URINE NEG (NEG); KETONE, URINE NEG (NEG); NITRITE,URINE NEG (NEG); PH, URINE 5.5 (5.0-8.5)
[2017-08-22 16:51] LABS: CHLORIDE 107 MEQ/L (98-107); POTASSIUM 4.3 MEQ/L (3.5-5.1); SODIUM (NA) 140 MEQ/L (136-145)
[2017-08-22 16:55] LABS: ANION GAP 4 MEQ/L (5-15); APTT (PATIENT) 24.1 SEC (24.3-30.1); BICARBONATE 28.6 MEQ/L (21.0-32.0); BLOOD UREA NITROGEN 22 MG/DL (7-18); INTERNATIONAL NORMALIZED RATIO 0.9 RATIO; MAGNESIUM 2.4 MG/DL (1.5-2.5); PROTHROMBIN TIME - PATIENT 10.4 SEC (9.8-11.6)
[2017-08-22 16:58] LABS: ALT (GPT) 19 U/L (10-53); AST (GOT) 40 U/L (15-37); GLOMERULAR FILTRATION RATE 76 ML/MIN (>89)
[2017-08-22 16:59] LABS: TOTAL BILIRUBIN ADULT 0.7 MG/DL (0.2-1.0)
[2017-08-22 17:00] LABS: ALKALINE PHOSPHATASE 76 U/L (45-117)
[2017-08-22 17:07] LABS: URINE COLOR YELLOW (YELLW/STRAW)
[2017-08-22 17:11] LABS: WBC, URINE 0-2 /hpf (0-5)
[2017-08-22 17:12] LABS: COMMENT (UR) CULT NOT INDICATED; CULTURE IF INDICATED CULT NOT INDICATED; RBC, URINE 0-3 /hpf (0-3); SQUAMOUS EPITHELIAL CELL URINE 0-5 /hpf (0-5)
[2017-08-22 17:15] LABS: CREATINE KINASE 55 U/L (26-192)
[2017-08-22] MEDS ORDERED: CARB10TA2 PO (17:27)
[2017-08-22] MEDS ORDERED: PARO20TA2 PO (17:27)
[2017-08-22 17:31] VITALS: O2SAT 96
--- NOTE | 2017-08-22 17:41 | RADRPT ---
EXAM DATE/TIME: 08/22/2017 17:05 [facility] COMPARISON: CHEST SINGLE AP, October 18, 2015, 20:07. INDICATIONS : Cough. MEDICAL HISTORY : Gastroesophageal reflux disease. Seizures. SURGICAL HISTORY : Hysterectomy. ENCOUNTER: Initial ACUITY: 3 days PAIN SCORE: 2/10 LOCATION: Bilateral chest FINDINGS: A single view of the chest demonstrates the lungs to be symmetrically aerated without evidence of mas s, infiltrate or effusion. The cardiomediastinal contours are unremarkable. Osseous structures are intact. CONCLUSION: Normal examination for a patient of this age. Stable exam Golden Bailon MD on August 22, 2017 at 17:38 Board Certified Radiologist. This report was verified electronically.
--- NOTE | 2017-08-22 17:41 | RADRPT ---
EXAM DATE/TIME: 08/22/2017 17:24 [facility] COMPARISON: CT BRAIN W/O CONTRAST, February 23, 2017, 22:35. INDICATIONS : Altered mental status. Recent fall. RADIATION DOSE: 60.01 CTDIvol (mGy) MEDICAL HISTORY : Gastroesophageal reflux disease. SURGICAL HISTORY : Hysterectomy. ENCOUNTER: Initial ACUITY: 1 day PAIN SCALE: 0/10 LOCATION: cranial TECHNIQUE: Multiple contiguous axial images were obtained of the head. Using automated exposure control and adj ustment of the mA and/or kV according to patient size, radiation dose was kept as low as reasonably a chievable to obtain optimal diagnostic quality images. DICOM format image data is available electro nically for review and comparison. FINDINGS: CEREBRUM: CSF spaces are mildly prominent but stable. No evidence of midline shift, mass lesion, hemorrhage or acute infarction. No extra-axial fluid collections are seen. POSTERIOR FOSSA: The cerebellum and brainstem are intact. The 4th ventricle is midline. The cerebellopontine angle i s unremarkable. EXTRACRANIAL: The visualized portion of the orbits is intact. SKULL: The calvaria is intact. No evidence of skull fracture. CONCLUSION: 1. Stable exam without evidence of acute infarct, hemorrhage, mass or edema. 2. Mildly prominent CSF spaces characteristic of an aging brain. Eugenio Pritchett MD on August 22, 2017 at 17:38 Board Certified Radiologist. This report was verified electronically.
[2017-08-22 18:06] VITALS: BP 107/65; PULSE 65; RESP 18; O2SAT 98
[2017-08-22 18:57] VITALS: BP 104/58
--- NOTE | 2017-08-23 23:53 | EKG ---
Date Performed: 08/22/2017 Time Performed: 16:20:58 PTAGE: 72 years EKG: Sinus rhythm NORMAL ECG INTERPRETATION BASED ON A DEFAULT AGE OF 40 YEARS PREVIOUS TRACING : 02/23/2017 22.19 Compared to prior tracing no significant change DOCTOR: Cesar Villatoro Interpretating Date/Time 08/23/2017 23:52:07
== END 2017-08-22 19:07 | disposition home or self-care (01) ==
LOC: PHED 16:15
DX: R53.1 Weakness (principal); G20 Parkinson's disease; F32.9 Major depressive disorder, single episode, unspecified; K21.9 Gastro-esophageal reflux disease without esophagitis; F48.8 Other specified nonpsychotic mental disorders; I95.9 Hypotension, unspecified; R41.82 Altered mental status, unspecified; R30.0 Dysuria; R05 Cough; M79.7 Fibromyalgia
CPT/HCPCS: 70450; 71010; 80053; 81001; 82550; 83605; 83735; 84484; 85025; 85610; 85730; 93005; 96360; 99285; J7030

== ENCOUNTER 2017-10-22 08:14 | Emergency (ER) | payer MEDICARE, MEDICAID ==
[~2017-10-22] VITALS: Ht 162.6 cm; Wt 57.1 kg
[~2017-10-22 08:14] MED LIST changes: -ASPI81CH CHEW; +CARB10TA2 PO; -DIFL150T PO; -METH2.5T PO; +PARO20TA2 PO; -PERC5TAB12 PO; -UNKNOWN MEDS
[2017-10-22 08:20] VITALS: BP 172/67; PULSE 81; RESP 16; TEMP 97.7; O2SAT 98
[2017-10-22] MEDS ORDERED: NYSTCRE29 TOPICAL (08:40)
[2017-10-22] MEDS ORDERED: DIFL150T PO (08:40)
--- NOTE | 2017-10-22 08:41 | PD ---
HPI Chief Complaint: Postdoctoral Scholar Problem/Complaint Time Seen by Provider: 08:36 Travel History International Travel<30 days: No Contact w/Intl Traveler<30days: No Traveled to known affect area: No History of Present Illness HPI Patient presents with complaints of vaginal itching for approximately one month. Denies vaginal discharge. Denies sexual activity. Attempted over-the- counter yeast treatment without success. PFSH Past Medical History Hx Anticoagulant Therapy: No Arthritis: Yes (RHEUMATOID) Autoimmune Disease: Yes (RA) Blood Disorders: No Anxiety: No Depression: Yes Heart Rhythm Problems: No Cancer: No Cardiac Catheterization: No Cardiovascular Problems: Yes (HTN) High Cholesterol: No Chemotherapy: No Chest Pain: No Congestive Heart Failure: No Cirrhosis: No Cerebrovascular Accident: No Dementia: Yes Diabetes: No Diminished Hearing: No Endocrine: No Fibromyalgia: Yes GERD: Yes Genitourinary: No Hypertension: No Immune Disorder: No Implanted Vascular Access Dvce: Yes Musculoskeletal: Yes ("ruptured disc,back" "2 vertebrae tips broken off in neck") Neurologic: Yes (FIBROMYALGIA) Psychiatric: Yes Reproductive: No Respiratory: No Immunizations Current: Yes Migraines: No Myocardial Infarction: No Radiation Therapy: No Renal Failure: No Seizures: Yes Thyroid Disease: No ?: Not Menopausal: Yes Dilation and Curettage (D&C): Yes Tubal Ligation: Yes Past Surgical History Abdominal Surgery: No AICD: No Arteriovenous Shunt: No Body Medical Devices: BULgING DISC, PT ALSO STATES WIRES IN RIGHT JAW Cardiac Surgery: No Coronary Artery Bypass Graft: No Ear Surgery: No Endocrine Surgery: No Eye Surgery: Yes (BILATERAL CATARACT) Genitourinary Surgery: No Gynecologic Surgery: Yes (HYSTERECTOMY) Hysterectomy: Yes (IN EARLY 30'S) Insulin Pump: No Joint Replacement: No Oral Surgery: No Pacemaker: No Thoracic Surgery: No Tonsillectomy: Yes Other Surgery: Yes (TUMOR REMOVED FROM RIGHT UNDER ARM) Social History Alcohol Use: No Tobacco Use: No Substance Use: No Allergies-Medications (Allergen,Severity, Reaction): Coded Allergies: *MDRO Multi-Drug Resistant Organism (Verified Allergy, Unknown, 10/22/17) MRSA codeine (Unverified Adverse Reaction, Severe, ITCH, 10/22/17) tramadol (Unverified Adverse Reaction, Severe, NAUSEA, 10/22/17) Reported Meds & Prescriptions Reported Meds & Active Scripts Active Reported Carbidopa-Levodopa 10-100 Mg Tab 1 Tab PO Q8HR Paroxetine (Paroxetine HCl) 20 Mg Tab 20 Mg PO BID Review of Systems General / Constitutional: No: Fever Eyes: No: Visual changes HENT: No: Headaches Cardiovascular: No: Chest Pain or Discomfort Respiratory: No: Shortness of Breath Gastrointestinal: No: Abdominal Pain Genitourinary: Positive: Other (vaginal itching), No: Dysuria Musculoskeletal: No: Pain Skin: No Rash Neurologic: No: Weakness Psychiatric: No: Depression Endocrine: No: Polydipsia Hematologic/Lymphatic: No: Easy Bruising Physical Exam Narrative GENERAL: Well-nourished, well-developed patient. SKIN: Focused skin assessment warm/dry. HEAD: Normocephalic. EYES: No scleral icterus. No injection or drainage. NECK: Supple, trachea midline. No JVD or lymphadenopathy. CARDIOVASCULAR: Regular rate and rhythm without murmurs, gallops, or rubs. RESPIRATORY: Breath sounds equal bilaterally. No accessory muscle use. GASTROINTESTINAL: Abdomen soft, non-tender, nondistended. MUSCULOSKELETAL: No cyanosis, or edema. BACK: Nontender without obvious deformity. No CVA tenderness. Vaginal exam reveals no significant discharge however there is perivaginal erythema that extends to the rectum, no bleeding noted Data Data Last Documented VS Vital Signs Date Time Temp Pulse Resp B/P (MAP) Pulse Ox O2 Delivery O2 Flow Rate FiO2 10/22/17 08:20 97.7 81 16 172/67 (102) 98 MDM Medical Decision Making Medical Screen Exam Complete: Yes Emergency Medical Condition: Yes Differential Diagnosis Yeast infection, lichen planus, vaginitis Narrative Course Assessment and plan discussed with patient at bedside. Diagnosis Primary Impression: Vaginitis Qualified Codes: N76.1 - Subacute and chronic vaginitis Patient Instructions: General Instructions Additional Instructions: Encouraged to follow-up with [facility] for further evaluation, encouraged to return to emergency room with any onset of new symptoms. Med/Other Pt SpecificInfo: Prescription(s) given Scripts Nystatin-Triamcinolone (Nystatin-Triamcinolone) 100,000-0.1 Unit/Gm Cream 1 APPLIC TOPICAL BID for Infection, #30 GM 0 Refills Prov: Ryan Landon MD 10/22/17 Fluconazole (Diflucan) 150 Mg Tab 150 MG PO DAILY for Infection for 3 Days, #3 TAB 0 Refills Prov: Ryan Landon MD 10/22/17 Disposition: 01 DISCHARGE HOME Condition: Good Rayn Landon MD Oct 22, 2017 08:41
[2017-10-22] MEDS ORDERED: OXYC-395 PO (08:43)
[2017-10-22] MEDS ORDERED: DIPH1TAB4 PO (08:43)
== END 2017-10-22 09:00 | disposition home or self-care (01) ==
LOC: PHED 08:14
DX: N76.1 Subacute and chronic vaginitis (principal); I10 Essential (primary) hypertension; F03.90 Unspecified dementia, unspecified severity, without behavioral disturbance, psychotic disturbance, mood disturbance, and anxiety; M06.9 Rheumatoid arthritis, unspecified
CPT/HCPCS: 99284